=== PATIENT | male | born 1995 | race Hispanic/Latino ===

== ENCOUNTER 2017-11-15 10:13 | Emergency (ER) | payer BC ==
[2017-11-15 10:51] LABS: Basophils % (Auto) 0.4 % (0.0-1.8); Eosinophils % (Auto) 0.1 % (0.0-4.3); Hematocrit 46.5 % (35.5-45.6); Hemoglobin 15.9 gm/dl (11.8-15.2); Mean Corpuscular HGB Conc 34 % (32-34); Mean Corpuscular Hemoglobin 29 pg (28-32); Mean Corpuscular Volume 86 fl (84-94); Platelet Count 356 K/mm3 (140-440); Red Blood Count 5.42 M/mm3 (3.65-5.03); Red Cell Distribution Width 12.3 % (13.2-15.2); White Blood Count 8.5 K/mm3 (4.5-11.0)
[2017-11-15 11:08] LABS: Anion Gap 28 mmol/L; BUN/Creatinine Ratio 31; Blood Urea Nitrogen 25 mg/dL (9-20); Calcium 9.6 mg/dL (8.4-10.2); Carbon Dioxide 20 mmol/L (22-30); Chloride 93.4 mmol/L (98-107); Glucose 107 mg/dL (75-100); Potassium 3.8 mmol/L (3.6-5.0); Sodium 138 mmol/L (137-145)
[2017-11-15] MEDS ORDERED: NACL 0.9% 1000 ML 1,000 ML IV ONE ×2 (11:35→11:58)
[2017-11-15] MEDS ORDERED: D50W (25GM) Syringe IV PRN (11:58)
--- NOTE | 2017-11-15 12:06 | Emergency Department Report ---
ED N/V/D HPI - General Chief complaint: Nausea/Vomiting/Diarrhea Stated complaint: NAUSEA/VOMITING Time Seen by Provider: 11/15/17 11:34 Source: patient Mode of arrival: Ambulatory Limitations: No Limitations - History of Present Illness Initial comments: 21YO MALE TYPE I DIABETIC HER WITH C/O NAUSEA/VOMITING/DIARRHEA THAT BEGAN 2 DAYS AGO. HIS VOMITING IS INTRACTABLE AND HE HAS HAD 2 EPISODES OF WATERY DIARRHEA. HE DENIES SICK CONTACTS AND DENIES FEVER,CHILLS,SORETHROAT, MYALGIA, ARTHRALGIA OR OTHER ASSOCIATED SYMPTOMS. HE BELIEVES THAT HE IS IN DKA. HAD AN INFLUENZA SHOT IN FALL. MD complaint: nausea, vomiting, diarrhea, abdominal pain -: days(s) (2) Description of Vomiting: food contents Description of Diarrhea: water Associated Abdominal Pain: Yes Radiation: none Severity: mild Quality: cramping Consistency: intermittent Improves with: none Worsens with: vomiting Context: possible food poisoning Associated Symptoms: denies other symptoms - Related Data Allergies Allergy/AdvReac Type Severity Reaction Status Date / Time No Known Allergies Allergy Verified 11/15/17 12:08 ED Review of Systems ROS: Stated complaint: NAUSEA/VOMITING Other details as noted in HPI Constitutional: weakness. denies: chills, fever Eyes: denies: eye pain, eye discharge, vision change ENT: throat pain (FROM ACID BURNIGN HIS THROAT PER PT). denies: ear pain Respiratory: denies: cough, shortness of breath, wheezing Cardiovascular: denies: chest pain, palpitations Endocrine: no symptoms reported Gastrointestinal: abdominal pain Genitourinary: denies: urgency, dysuria Musculoskeletal: denies: back pain, joint swelling, arthralgia, myalgia Skin: denies: rash, lesions Neurological: denies: headache, weakness, paresthesias Psychiatric: denies: anxiety, depression Hematological/Lymphatic: denies: easy bleeding, easy bruising ED Past Medical Hx - Past Medical History Previous Medical History?: Yes Hx Diabetes: Yes (Type 1) - Surgical History Past Surgical History?: Yes Additional Surgical History: CIRCUMCISION - Social History Smoking Status: Never Smoker Substance Use Type: Alcohol, Prescribed ED Physical Exam - General Limitations: No Limitations General appearance: alert, in no apparent distress - Head Head exam: Present: atraumatic, normocephalic - Eye Eye exam: Present: normal appearance, EOMI - ENT ENT exam: Present: mucous membranes moist - Neck Neck exam: Present: normal inspection, full ROM - Respiratory Respiratory exam: Present: normal lung sounds bilaterally. Absent: respiratory distress, wheezes, rales, rhonchi - Cardiovascular Cardiovascular Exam: Present: normal rhythm, tachycardia. Absent: systolic murmur, diastolic murmur, rubs, gallop - GI/Abdominal GI/Abdominal exam: Present: soft, tenderness (LEFT MID QUADRANT), normal bowel sounds, hyperactive bowel sounds. Absent: guarding, rebound, rigid - Rectal Rectal exam: Present: deferred - Extremities Exam Extremities exam: Present: normal inspection, full ROM - Back Exam Back exam: Present: normal inspection, full ROM - Neurological Exam Neurological exam: Present: alert, oriented X3, CN II-XII intact - Psychiatric Psychiatric exam: Present: normal mood, flat affect - Skin Skin exam: Present: warm, dry, intact, normal color. Absent: rash ED Course Vital Signs 11/15/17 11/15/17 10:18 11:29 Temperature 97.8 F 98.2 F Pulse Rate 133 H 114 H Respiratory 24 16 Rate Blood Pressure 143/111 Blood Pressure 146/107 [Left] O2 Sat by Pulse 97 100 Oximetry ED Medical Decision Making - Lab Data Result diagrams: 11/15/17 10:23 11/15/17 13:32 - Radiology Data Radiology results: report reviewed (ACUTE ABDOMINALSERIES:NEGATIVE) Critical care attestation.: If time is entered above; I have spent that time in minutes in the direct care of this critically ill patient, excluding procedure time. ED Disposition Clinical Impression: Dehydration, moderate DKA, type 1 Qualifiers: Diabetes mellitus complication detail: without coma Qualified Code(s): E10.10 - Type 1 diabetes mellitus with ketoacidosis without coma Nausea and vomiting Qualifiers: Vomiting type: unspecified Vomiting Intractability: intractable Qualified Code( s): R11.2 - Nausea with vomiting, unspecified Disposition: 09 OP ADMIT IP TO THIS HOSP Is pt being admited?: Yes Does the pt Need Aspirin: No Condition: Serious Instructions: Diabetic Ketoacidosis (ED) Referrals: PRIMARY CARE, [Primary Care Provider] - 3-5 Days Time of Disposition: 14:03 (CASE REVIEWED WITH DR MOELLER WHO WILL ADMIT HIM TO THE HOSPITAL)
[2017-11-15 12:09] LABS: Alanine Aminotransferase 16 units/L (7-56); Albumin 4.9 g/dL (3.9-5); Albumin/Globulin Ratio 1.8 %; Alkaline Phosphatase 94 units/L (35-129); Total Protein 7.7 g/dL (6.3-8.2)
[2017-11-15 12:13] LABS: Bilirubin,Direct < 0.2 mg/dL (0-0.2)
[2017-11-15] MEDS ORDERED: D5W/0.45% NACL/KCL 20 MEQ 20 MEQ/1,000 ML BAG IV SCH (12:30)
[2017-11-15] MEDS ORDERED: NovoLIN R 100 UNITS in NACL 0.9% 99 ML IV SCH (12:30)
[2017-11-15 12:32] LABS: Magnesium 1.5 mg/dL (1.7-2.3); Phosphorous 3.2 mg/dL (2.5-4.5)
[2017-11-15 12:33] LABS: Anion Gap 23 mmol/L; BUN/Creatinine Ratio 31; Blood Urea Nitrogen 25 mg/dL (9-20); Calcium 8.9 mg/dL (8.4-10.2); Carbon Dioxide 23 mmol/L (22-30); Glucose 102 mg/dL (75-100); Potassium 3.9 mmol/L (3.6-5.0); Sodium 139 mmol/L (137-145)
[2017-11-15] MEDS ORDERED: PROVENTIL IH PRN (13:27)
[2017-11-15] MEDS ORDERED: TYLENOL PO PRN (13:27)
[2017-11-15] MEDS ORDERED: ZOFRAN IV PRN (13:27)
[2017-11-15] MEDS ORDERED: DULCOLAX PR PRN (13:27)
[2017-11-15] MEDS ORDERED: MILK OF MAGNESIA PO PRN (13:27)
--- NOTE | 2017-11-15 13:28 | History and Physical Report ---
History of Present Illness Chief complaint: I feel sick, I keep throwing up, and i cant keep anything down. History of present illness: 21 YO Male with DM presents to ED for evaluation. Pt states that he experienced multiple episodes of nausea and vomiting over the past 2 days with persistent symptoms over the same time frame. Pt states that he feels weak, and has not been able to tolerate any oral intake. Pt denies fever, chills, CP, palpitations , syncope, productive cough, sore throat, medication noncompliance, abdominal pain, hematuria, urgency, frequency, ingestion of food/water from new or different sources. Pt seen and evaluated in ED and found to have volume depletion secondary to intractible nausea/vimiting, as well as metabolic acidosis. Past History Past Medical History: diabetes Past Surgical History: Other (circumcision) Social history: single Family history: diabetes Medications and Allergies Allergies Allergy/AdvReac Type Severity Reaction Status Date / Time No Known Allergies Allergy Verified 11/15/17 12:08 Active Meds: Active Medications Dextrose (D50w (25gm) Syringe) 0 ml IV PRN PRN PRN Reason: Hypoglycemia Potassium Chloride/Dextrose/Sod Cl (D5w/0.45% Nacl/Kcl 20 Meq) 20 meq in 1,000 mls @ 125 mls/hr IV DIRECT RUSH Review of Systems Constitutional: weakness, no weight loss, no weight gain, no fever, no chills, no sweats Ears, nose, mouth and throat: no ear pain, no ear discharge, no tinnitis, no decreased hearing, no nose pain, no nasal congestion Cardiovascular: no chest pain, no orthopnea, no palpitations, no rapid/ irregular heart beat, no edema, no syncope Respiratory: no cough, no cough with sputum, no excessive sputum, no hemoptysis , no shortness of breath Gastrointestinal: nausea, vomiting, diarrhea, no constipation, no change in bowel habits, no hematemesis, no coffee ground emesis, no melena, no hematochezia, no early satiety, no heartburn Genitourinary Male: no hematuria, no flank pain, no discharge, no urinary frequency, no urinary hesitancy, no nocturia Rectal: no pain, no incontinence, no bleeding Musculoskeletal: no neck stiffness, no neck pain, no shooting arm pain, no arm numbness/tingling, no low back pain, no shooting leg pain Integumentary: no rash, no pruritis, no redness, no sores Neurological: no head injury, no transient paralysis, no paralysis, no weakness , no parathesias, no numbness, no tingling Psychiatric: no anxiety, no memory loss, no change in sleep habits, no sleep disturbances, no insomnia, no hypersomnia Endocrine: no cold intolerance, no heat intolerance, no polyphagia, no excessive thirst, no polydipsia, no polyuria, no nocturia Hematologic/Lymphatic: no easy bruising, no easy bleeding Allergic/Immunologic: no urticaria, no allergic rhinitis, no wheezing Exam - Constitutional Vitals: Temp Pulse Resp BP Pulse Ox 98.2 F 114 H 16 146/107 100 11/15/17 11:29 11/15/17 11:29 11/15/17 11:29 11/15/17 11:29 11/15/17 11:29 General appearance: Present: mild distress - EENT Eyes: Present: PERRL ENT: hearing intact, clear oral mucosa - Neck Neck: Present: supple, normal ROM - Respiratory Respiratory effort: normal Respiratory: bilateral: CTA - Cardiovascular Heart Sounds: Present: S1 & S2. Absent: rub, click - Extremities Extremities: pulses symmetrical, No edema Peripheral Pulses: within normal limits - Abdominal General gastrointestinal: Present: soft, non-tender, non-distended, normal bowel sounds Male genitourinary: Present: normal - Integumentary Integumentary: Present: clear, dry, clammy, decreased turgor - Musculoskeletal Musculoskeletal: gait normal, strength equal bilaterally - Psychiatric Psychiatric: appropriate mood/affect, intact judgment & insight - Neurologic Neurologic: CNII-XII intact, moves all extremities Results - Labs CBC & Chem 7: 11/15/17 10:23 11/15/17 13:32 Labs: Abnormal lab results 11/15/17 11/15/17 11/15/17 Range/Units 10:23 10:23 12:04 RBC 5.42 H (3.65-5.03) M/mm3 Hgb 15.9 H (11.8-15.2) gm/dl Hct 46.5 H (35.5-45.6) % RDW 12.3 L (13.2-15.2) % Chloride 93.4 L (98-107) mmol/L Carbon Dioxide 20 L (22-30) mmol/L BUN 25 H (9-20) mg/dL Glucose 107 H (75-100) mg/dL Magnesium 1.50 L (1.7-2.3) mg/dL 11/15/17 Range/Units 12:04 RBC (3.65-5.03) M/mm3 Hgb (11.8-15.2) gm/dl Hct (35.5-45.6) % RDW (13.2-15.2) % Chloride 97.0 L (98-107) mmol/L Carbon Dioxide (22-30) mmol/L BUN 25 H (9-20) mg/dL Glucose 102 H (75-100) mg/dL Magnesium (1.7-2.3) mg/dL Assessment and Plan - Patient Problems (1) Metabolic acidosis Current Visit: Yes Status: Acute Plan to address problem: IVF resuscitation therapy, anti emetic therapy, (2) Intractable nausea and vomiting Current Visit: Yes Status: Acute Plan to address problem: Antiemetic therapy, bowel rest, clear liquids, advance to ADA diet as tolerated , (3) Volume depletion Current Visit: Yes Status: Acute Plan to address problem: IVF resuscitation therapy, monitor uop q shift, (4) DVT prophylaxis Current Visit: Yes Status: Acute
--- NOTE | 2017-11-15 13:42 | XRay Report ---
ABDOMINAL SERIES: History: Nausea and vomiting. Erect chest film shows no acute or significant changes involving the heart or lung hay. There is no evidence of free air beneath the diaphragms. The gas pattern within the abdomen is unremarkable. There is no evidence of bowel dilatation, significant air-fluid levels, or masses. Organ shadows are unremarkable. IMPRESSION: Abdominal series within normal limits.
[2017-11-15 14:00] LABS: Bilirubin,Urine NEG (Negative); Blood,Urine NEG (Negative); Ketones,Urine 80 mg/dL (Negative); Leukocyte Esterase,Urine NEG (Negative); Mucus,Urine 3+ /HPF; Nitrite,Urine NEG (Negative); Urobilinogen,Urine < 2.0 mg/dL (<2.0)
[2017-11-15 14:00] LABS: Anion Gap 24 mmol/L; BUN/Creatinine Ratio 30; Blood Urea Nitrogen 24 mg/dL (9-20); Calcium 8.3 mg/dL (8.4-10.2); Carbon Dioxide 21 mmol/L (22-30); Chloride 97.5 mmol/L (98-107); Glucose 85 mg/dL (75-100); Potassium 3.9 mmol/L (3.6-5.0); Sodium 139 mmol/L (137-145)
[2017-11-15] MEDS ORDERED: NACL 0.45% 1000 ML 1,000 ML IV SCH (14:00)
[2017-11-15 14:12] VITALS: BP 141/98
== END 2017-11-15 15:11 | disposition admitted as inpatient to this hospital (09) ==
LOC: ED 10:13 → 3A 13:27 → UNDOADMIN 13:27 → ED 15:11
DX: E10.10 Type 1 diabetes mellitus with ketoacidosis without coma (principal); E86.0 Dehydration; R11.2 Nausea with vomiting, unspecified
CPT/HCPCS: 36415; 74022; 80048; 80074; 81001; 82140; 82962; 83735; 84100; 85025; 93005; 93010; 96360; 96361; 99285; J7030; J1815